=== PATIENT | female | born 1960 | race Caucasian/White ===

== ENCOUNTER 2021-05-04 07:30 | Day surgery (SDC) | payer BC ==
[~2021-05-04] VITALS: Ht 154.9 cm; Wt 56.3 kg
[~2021-05-04 07:30] MED LIST: BUDESONIDE EC3 MG PO; CALCITRATE200 MG PO; ESTRADIOL1 EAC6 TD; LEVOTHYROXINE25 MCG PO; MULTI VITAMIN1 EACH PO; PERCOCET 7.5-31 EACH PO; PSEUDOEPHEDRINE60 MG PO; VITAMIN D5000 UNIT PO
--- NOTE | 2021-05-04 10:20 | NUR ---
pt has been updated with wait. up to br x2. warm blankets on. iv patent.
--- NOTE | 2021-05-04 11:45 | NUR ---
05/04/21 1145 Blaire Castorena 1140 PATIENT ARRIVE TO PACU AWAKE OFF/ON, BUT DROWYS. DENIES PAIN OR NAUSEA. RESP EVEN AND UNLABORED, NC TURNED OFF ON ARRIVAL TO PACU, ROOM AIR SATS >95%.
--- NOTE | 2021-05-05 15:47 | OR ---
[facility] [address], [place] [address] Signed DATE OF OPERATION: 05/04/2021 SURGEON: Rosemary Alston MD PREOPERATIVE DIAGNOSES: 1. Mild reflux symptoms, occasional dysphagia. 2. Recent episode of possible flare of collagenous colitis. POSTOPERATIVE DIAGNOSES: 1. Mild antral gastritis. 2. Cecal inflammation consistent with collagenous colitis, persistence or recurrence. PROCEDURES: 1. Esophagogastroduodenoscopy with biopsy. 2. Total colonoscopy to cecum with multiple biopsies. ANESTHESIA: Intravenous sedation; fentanyl 150 mcg and Versed 5 mg (total). INDICATION: This 60-year-old white woman is a patient Dr. 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 She is known to me from the past having been diagnosed with collagenous colitis as initially presenting with severe diarrhea. She responded well to budesonide therapy but gradually tapered away from it. She had an episode of recurrent diarrhea described as a "flare" for at least two weeks of loose and poorly controlled bowel movements. She told me she did not take budesonide once again, but had been taking Pepto-Bismol with some symptomatic benefit. She is admitted at this time to undergo colonoscopy to assess the state of her collagenous colitis. Additionally, the patient has symptoms of epigastric pain from [id number] as well as mild dysphagia. On that basis, upper endoscopy concurrently performed has been offered. Notably, she has undergone cholecystectomy in the past. FINDINGS: On upper endoscopy, she had no evidence of stricture or evidence of eosinophilic esophagitis and the flap valve was normal. She had mild antral gastritis for which biopsies were obtained. On upper endoscopy, her CLOtest was found to be negative 20 minutes post procedure. Electronically Signed By: ROSEMARY ALSTON MD 05/05/21 1547 PATIENT NAME: SOL HAYDEN OPERATIVE REPORT DATE OF : 58 REPORT #: [id number] PHYSICIAN: ROSEMARY ALSTON MD PCP: HEIDY RAMON MD REPORT IS CONFIDENTIAL AND NOT TO BE RELEASED WITHOUT AUTHORIZATION [facility] [address], [place] [address] Signed On colonoscopy, the prep was quite good. She underwent complete colonoscopy to the cecum without question. The cecal mucosa was highly typical of collagenous colitis, low-grade inflammation and a "fuzzy" appearance of the mucosa. The remaining colonic mucosa, however, appeared reasonably normal. Multiple biopsies were taken throughout to establish the extent of collagenous colitis that she likely has. DESCRIPTION OF PROCEDURE: The patient was brought to the endoscopy suite and given topical hypopharyngeal lidocaine anesthesia. Given intravenous sedation to the point of slurred speech and nystagmus. A bite block was placed. Full cardiopulmonary monitoring was maintained. An Olympus video upper endoscope was passed in the hypopharynx. The vocal cords appeared normal. The scope was advanced to the esophagus and throughout its length it appeared normal. There is certainly no stricture or Nino's epithelium. Scope was passed to the stomach, which was insufflated with air. Rugal folds were normal as was the antral motility. She had a mild inflammatory appearance of the antrum, but no evidence of ulceration. The pylorus was normal and nondeformed. Passage to the duodenum was normal. Biopsies were obtained of the duodenum. The scope withdrawn and biopsies then taken of the antrum for both QUAN and pathologic testing. Retroflexed view was undertaken showing a good flap valve. No sign of hiatal hernia. The scope was withdrawn to the distal esophagus where biopsies were obtained and additional biopsies of the mid esophagus. The scope was withdrawn and removed. The vocal cords appeared normal. Plans were then made for colonoscopy. Additional sedation was given. Digital rectal examination was normal. An Olympus video colonoscope was passed in the rectum and manipulated throughout the colon. She had a somewhat redundant colon, but ultimately the cecum was entirely intubated without question and a chronic inflammatory appearance of the mucosa was noted. It had a fuzzy appearance typical of microscopic type colitis. Biopsies were obtained of the cecum. The scope was withdrawn and random biopsies taken upon withdrawal of the scope including the right colon, transverse, left, and rectum. Retroflexed view was otherwise normal. The scope was removed and the patient taken to the recovery room in good condition. CONCLUDING DIAGNOSES: 1. No evidence of stricture or esophageal pathology to account for dysphagia; pathology pending for eosinophilic esophagitis. Mild antral gastritis. 2. Probable low-grade collagenous colitis. It is uncertain if she has been replaced of budesonide therapy, I will determine that at this point. FOLLOWUP PLAN: Electronically Signed By: ROSEMARY ALSTON MD 05/05/21 1547 PATIENT NAME: SOL HAYDEN OPERATIVE REPORT DATE OF : 58 REPORT #: [id number] PHYSICIAN: ROSEMARY ALSTON MD PCP: HEIDY RAMON MD REPORT IS CONFIDENTIAL AND NOT TO BE RELEASED WITHOUT AUTHORIZATION [address] [address] Signed She is return to see me in approximately 4 to 6 weeks and we will review her pathology report and clinical progress. MD DEANDRA Bowles/MODL /[id number] cc: Heidy Ramon MD Copies: HEIDY RAMON MD ~ Electronically Signed By: ROSEMARY ALSTON MD 05/05/21 1547 PATIENT NAME: SOL HAYDEN OPERATIVE REPORT DATE OF : 58 REPORT #: [id number] PHYSICIAN: ROSEMARY ALSTON MD PCP: HEIDY RAMON MD REPORT IS CONFIDENTIAL AND NOT TO BE RELEASED WITHOUT AUTHORIZATION
--- NOTE | 2021-05-08 16:34 | PATH ---
[facility] [address] [place], [place] [address] Signed THIS IS AN ADDENDUM REPORT SPECIMEN(S): A DUODENAL BIOPSY SPECIMEN(S): B ANTRUM/PYLORUS BIOPSY SPECIMEN(S): C LOW ESOPHAGEAL BIOPSY SPECIMEN(S): D MID ESOPHAGEAL BIOPSY SPECIMEN(S): E CECAL BIOPSY SPECIMEN(S): F TRANSVERSE COLON BIOPSY SPECIMEN(S): G DESCENDING/LEFT COLON BIOPSY SPECIMEN(S): H SIGMOID COLON BIOPSY SPECIMEN(S): I RECTAL BIOPSY SPECIMEN SOURCE: A. DUODENAL BIOPSY B. ANTRUM/PYLORUS BIOPSY C. LOW ESOPHAGEAL BIOPSY D. MID ESOPHAGEAL BIOPSY E. CECAL BIOPSY F. TRANSVERSE COLON BIOPSY G. DESCENDING/LEFT COLON BIOPSY H. SIGMOID COLON BIOPSY I. RECTAL BIOPSY CLINICAL HISTORY: Esophagogastroduodenoscopy, colonoscopy. Collagenous colitis; dysphagia with reflux. FINAL PATHOLOGIC DIAGNOSIS: A. Duodenum, biopsy: - Duodenal mucosa with Noe's gland hyperplasia. - Negative for increased intraepithelial lymphocytes. - Negative for dysplasia or malignancy. B. Stomach, antrum/pylorus, biopsy: - Antral and oxyntic mucosa with chronic, inactive gastritis. - Negative for Helicobacter organisms on HE stain. - Negative for dysplasia or malignancy. - See comment. C. Esophagus, lower, biopsy: - Squamous mucosa with reactive changes and increased intraepithelial eosinophils (approximately 53 per high-power field). - Negative for intestinal metaplasia, dysplasia, or malignancy. PATIENT NAME: CONTOR,SOL A PATHOLOGY DATE OF : 58 REPORT #: [id number] PHYSICIAN: LELA PIERCE PCP: HEIDY MAYA MD REPORT IS CONFIDENTIAL AND NOT TO BE RELEASED WITHOUT AUTHORIZATION [facility] [address] [place], [place] [address] Signed - See comment. D. Esophagus, mid, biopsy: - Squamous mucosa with no histopathologic abnormality. - Negative for increased intraepithelial eosinophils. - Negative for intestinal metaplasia, dysplasia, or malignancy. E. Colon, cecum, biopsy: - Collagenous colitis, see Comment. - Negative for dysplasia or malignancy. F. Colon, transverse, biopsy: - Collagenous colitis, see Comment. - Negative for dysplasia or malignancy. G. Colon, descending/left, biopsy: - Collagenous colitis, see Comment. - Negative for dysplasia or malignancy. H. Colon, sigmoid, biopsy: - Collagenous colitis, see Comment. I. Rectum, biopsy: - Rectal mucosa with no histopathologic abnormality. - Negative for dysplasia or malignancy. COMMENT: Regarding specimen B: An H. pylori immunohistochemical stain (with appropriately staining controls has been ordered and will be reported in an addendum. Regarding specimen C: The lower esophageal biopsy demonstrates increased intraepithelial eosinophils with a background of reactive changes. The differential diagnosis includes reflux esophagitis or eosinophilic esophagitis, although eosinophilic esophagitis is less favored due to the normal mid esophageal biopsy. Clinical correlation is required for this diagnosis. Regarding specimens E-H: Sections are similar and demonstrate colonic mucosa with subtle, yet present, patchy atypical subepithelial collagen band thickening and increased lamina propria chronic inflammation, including numerous eosinophils. There is no crypt architectural distortion or significant increased intraepithelial eosinophils. Trichrome special stains (with appropriately staining controls) were performed on specimens E, F and G and highlight the atypical subepithelial collagen deposition. Overall, the combined features are consistent with the diagnosis of collagenous colitis. NAL:[id number]:[id number] PATIENT NAME: SOL HAYDEN PATHOLOGY DATE OF : 58 REPORT #: [id number] PHYSICIAN: LELA PIERCE PCP: HEIDY MAYA MD REPORT IS CONFIDENTIAL AND NOT TO BE RELEASED WITHOUT AUTHORIZATION [facility] [address] [place] [id number] Signed MICROSCOPIC EXAMINATION: Histologic sections of all submitted blocks are examined by light microscopy. These findings, together with the gross examination, support the pathologic diagnosis. GROSS DESCRIPTION: Nine specimens are received in nine containers, labeled "MC." A. The specimen, labeled "MC, duodenal biopsy," is received in formalin and consists of three johnson soft tissue fragments that measure 0.1-0.3 cm in greatest dimension. The specimen is entirely submitted in cassette (A1). B. The specimen, labeled "MC, antral biopsy," is received in formalin and consists of three johnson soft tissue fragments that measure 0.2-0.3 cm in greatest dimension. The specimen is entirely submitted in cassette (B1). C. The specimen, labeled "MC, distal esophagus biopsy," is received in formalin and consists of one johnson soft tissue fragment that measures 0.2 cm in greatest dimension. The specimen is entirely submitted in cassette (C1). D. The specimen, labeled "MC, mid esophagus biopsy," is received in formalin and consists of two johnson soft tissue fragments that measure 0.1-0.2 cm in greatest dimension. The specimen is entirely submitted in cassette (D1). E. The specimen, labeled "MC, cecum biopsy," is received in formalin and consists of four johnson soft tissue fragments that measure 0.2 cm in greatest dimension. The specimen is entirely submitted in cassette (E1). F. The specimen, labeled "MC, transverse colon biopsy," is received in formalin and consists of one johnson soft tissue fragment that measures 0.2 cm in greatest dimension. The specimen is entirely submitted in cassette (F1). G. The specimen, labeled "MC, left colon biopsy," is received in formalin and consists of two johnson soft tissue fragments that measure 0.2 cm in greatest dimension. The specimen is entirely submitted in cassette (G1). H. The specimen, labeled "MC, sigmoid colon biopsy," is received in formalin and consists of two johnson soft tissue fragments that measure 0.2-0.4 cm in greatest dimension. The specimen is entirely submitted in cassette (H1). PATIENT NAME: SLO HAYDEN PATHOLOGY DATE OF : 58 REPORT #: [id number] PHYSICIAN: LELA PATHOLOGY PCP: HEIDY MAYA MD REPORT IS CONFIDENTIAL AND NOT TO BE RELEASED WITHOUT AUTHORIZATION [facility] [address] [place], [place] [address] Signed I. The specimen, labeled "MC, rectum biopsy," is received in formalin and consists of three johnson soft tissue fragments that measure 0.1-0.2 cm in greatest dimension. The specimen is entirely submitted in cassette (I1). JS (under the direct supervision of a pathologist) The Gross Description was prepared using a voice recognition system. The report was reviewed for accuracy; however, sound-alike word errors, addition and/or deletions may occur. If there is any question about this report, please contact Client Services. ADDITIONAL NOTES: Immunohistochemical and/or in situ hybridization studies were performed on this case with the appropriate positive controls that react as expected. This test was developed and its performance characteristics determined by [facility]. It has not been cleared or approved by the U.S. Food and Drug Administration. The FDA has determined that such clearance or approval is not necessary. This test is used for clinical purposes. It should not be regarded as investigational or for research. [facility] is certified under the Clinical Laboratory Improvement Amendments of 1988 (CLIA) as qualified to perform high complexity clinical laboratory testing. This assay has not been validated for specimens that have been decalcified. The technical component was performed by [facility], [address] [place] [address] (Machine Or Machinery Mechanic: Marcia Carreno MD; CLIA# [id number]). Professional interpretation was performed by [facility], [facility], [address] [place] [address] (CLIA# [id number]). PERFORMING LABORATORY: The technical component was performed by [facility], [address] [place] [address] (Machine Or Machinery Mechanic: Marcia Carreno MD; CLIA# [id number]). Professional interpretation was performed by [facility], [facility], [address] [place] [address] (CLIA# [id number]). ADDITIONAL NOTES: Immunohistochemical and/or in situ hybridization studies were performed on this case with the appropriate positive controls that react as expected. This test was developed and its performance characteristics determined by [facility]. It has not been cleared or approved by the U.S. Food and Drug Administration. The FDA has determined that PATIENT NAME: SOL HAYDEN PATHOLOGY DATE OF : 58 REPORT #: [id number] PHYSICIAN: LELA PIERCE PCP: HEIDY MAYA MD REPORT IS CONFIDENTIAL AND NOT TO BE RELEASED WITHOUT AUTHORIZATION [facility] [address] [facility] [place], [place] [address] Signed such clearance or approval is not necessary. This test is used for clinical purposes. It should not be regarded as investigational or for research. [facility] is certified under the Clinical Laboratory Improvement Amendments of 1988 (CLIA) as qualified to perform high complexity clinical laboratory testing. This assay has not been validated for specimens that have been decalcified. REASON FOR ADDENDUM: To report results of special stains. ADDENDUM COMMENT: Regarding specimen B: An H. pylori immunohistochemical stain (with appropriately staining controls) is negative for Helicobacter organisms. NA:[facility] Diagnostician: Katy Bradshaw MD Pathologist Electronically Signed 05/08/2021 Copies: ~ PATIENT NAME: SOL HAYDEN PATHOLOGY DATE OF : 58 REPORT #: [id number] PHYSICIAN: LELA PATHOLOGY PCP: HEIDY MAYA MD REPORT IS CONFIDENTIAL AND NOT TO BE RELEASED WITHOUT AUTHORIZATION
== END 2021-05-04 12:25 | disposition home or self-care (01) ==
LOC: OPS 07:30 → DS 07:30 → OPS 08:05 → DS 08:05 → OPS 12:25
PROVIDERS: ATTEND Surgery
PROC: 0DB28ZX Excision of Middle Esophagus, Via Natural or Artificial Opening Endoscopic, Diagnostic (ICD-10-PCS; 2021-05-04)
PROC: 0DB38ZX Excision of Lower Esophagus, Via Natural or Artificial Opening Endoscopic, Diagnostic (ICD-10-PCS; 2021-05-04)
PROC: 0DBH8ZX Excision of Cecum, Via Natural or Artificial Opening Endoscopic, Diagnostic (ICD-10-PCS; 2021-05-04)
PROC: 0DBL8ZX Excision of Transverse Colon, Via Natural or Artificial Opening Endoscopic, Diagnostic (ICD-10-PCS; 2021-05-04)
PROC: 0DBN8ZX Excision of Sigmoid Colon, Via Natural or Artificial Opening Endoscopic, Diagnostic (ICD-10-PCS; 2021-05-04)
PROC: 0DBP8ZX Excision of Rectum, Via Natural or Artificial Opening Endoscopic, Diagnostic (ICD-10-PCS; 2021-05-04)
PROC: 0DBM8ZX Excision of Descending Colon, Via Natural or Artificial Opening Endoscopic, Diagnostic (ICD-10-PCS; 2021-05-04)
PROC: 0DB98ZX Excision of Duodenum, Via Natural or Artificial Opening Endoscopic, Diagnostic (ICD-10-PCS; principal; 2021-05-04 08:05)
PROC: 0DB78ZX Excision of Stomach, Pylorus, Via Natural or Artificial Opening Endoscopic, Diagnostic (ICD-10-PCS; 2021-05-04 08:05)
DX: K52.831 Collagenous colitis (principal); K29.50 Unspecified chronic gastritis without bleeding; K31.89 Other diseases of stomach and duodenum; Z90.49 Acquired absence of other specified parts of digestive tract; Z88.8 Allergy status to other drugs, medicaments and biological substances
CPT/HCPCS: 99153; G0500; J2250; J3010